=== PATIENT | male | born 1940 | race American Indian/Alaskan Native ===

== ENCOUNTER 2020-10-04 10:05 | Outpatient (CLI) | payer MEDICARE ==
[2020-10-04 11:05] LABS: Hemoglobin 12.8 gm/dl (11.8-15.2); Mean Corpuscular HGB Conc 33 % (32-34); Mean Corpuscular Volume 93 fl (84-94); Platelet Count 116 K/mm3 (140-440); Red Blood Count 4.22 M/mm3 (3.65-5.03); Red Cell Distribution Width 15.8 % (13.2-15.2)
[2020-10-04 11:20] LABS: ABG Base Excess -0.6 mmol/L (-2.0-3.0); ABG HCO3 23.7 mmol/L (20.0-26.0); ABG Methemoglobin 0.5 % (0.0-1.5); ABG Oxygen Saturation 96.3 % (95.0-99.0); ABG PCO2 38.1 mm Hg; ABG PH 7.412 pH Units (7.350-7.450); ABG PO2 73.4 mm Hg (80.0-90.0)
[2020-10-04 11:32] LABS: Alanine Aminotransferase 7 units/L (7-56); Albumin 4.1 g/dL (3.9-5); BUN/Creatinine Ratio 6; Blood Urea Nitrogen 5 mg/dL (9-20); Calcium 9.4 mg/dL (8.4-10.2); Chol/HDL Ratio 3.86 %; HDL Cholesterol 53 mg/dL (40-59); Hemolysis Index 5; LDL Cholesterol,Direct 132 mg/dL (50-130)
--- NOTE | 2020-10-04 12:59 | XRay Report ---
CHEST 2 VIEWS INDICATION / CLINICAL INFORMATION: CHRONIC PAIN. COMPARISON: None available. FINDINGS: SUPPORT DEVICES: Left sided pacemaker HEART / MEDIASTINUM: No significant abnormality. LUNGS / PLEURA: Mild COPD No pneumothorax. ADDITIONAL FINDINGS: No significant additional findings. IMPRESSION: Mild changes of COPD. No definite acute disease Signer Name: Gallo Hwang MD FACR Signed: 10/04/2020 12:55 PM Workstation Name: [id number]
--- NOTE | 2020-10-04 14:43 | Fluoroscopy Report ---
UPPER GI HISTORY: CHRONIC OBSTRUCTIVE PULMONARY DISEASE. TECHNIQUE: Single and double contrast barium technique utilized to evaluate the esophagus, stomach, and duodenal C-loop. FINDINGS: To begin the exam, swallowing was evaluated in the lateral position under direct fluorosco py. Swallowing was normal. The esophagus is normal caliber and mucosal pattern. No mass or stricture. No hiatal hernia. 1 or 2 e pisodes of gastroesophageal reflux into the distal esophagus was witnessed during this exam. There is normal filling of the gastric cavity. No mucosal defect or abnormal dilatation. Gastric jigna lity appears decreased throughout this exam. The duodenal bulb and duodenal sweep are unremarkable. IMPRESSION: Mild gastroesophageal reflux. Decreased gastric motility is suspected. No hiatal hernia or mucosal defect is appreciated. Fluoroscopic time: 2.3 minutes Number of fluoroscopic images: 21 Signer Name: Aris Barahona Jr, MD Signed: 10/04/2020 2:38 PM Workstation Name: [id number]
== END 2020-10-04 10:06 | disposition home or self-care (01) ==
LOC: FLUORO 10:05
PROVIDERS: ATTEND Internal Medicine
DX: J44.9 Chronic obstructive pulmonary disease, unspecified (principal); K21.9 Gastro-esophageal reflux disease without esophagitis; J30.89 Other allergic rhinitis; I10 Essential (primary) hypertension
CPT/HCPCS: 36415; 36600; 71046; 74246; 80053; 80061; 82785; 82803; 84436; 84443; 85027